=== PATIENT | female | born 1965 | race Caucasian/White ===

== ENCOUNTER 2019-12-13 00:08 | Day surgery (SDC) | payer OTHER, SELFPAY ==
[2019-11-30 09:51] VITALS: BMI 32.8
[2019-12-13] MEDS: LACTATED RINGERS 1,000 ML 30 ML IV CONT (11:15)
--- NOTE | 2019-12-13 11:16 | P.PNAN_ITS ---
Anes - Initial Pre Proc Eval Procedure: Operation Date: 12/13/19 13:00 Proposed Procedures p Excision Subcutaneous Mass Right Lower Back - Naresh Charles MD Date/Time: 12/13/19 11:16 Surgeon: Naresh Charles MD Pre Op Diagnosis: 2.0 subq mass right lower back Patient Data Age: 54 Gender: F Height: 5 ft 7 in Weight: 95.25 kg Allergies Allergy/AdvReac Type Severity Reaction Status Date / Time Penicillins Allergy Mild RASH Verified 11/30/19 09:52 CHILD Home Medications Medication Instructions Recorded Confirmed Type aspirin 81 mg tablet,delayed 81 mg PO DAILY 10/27/19 11/30/19 History release atorvastatin 80 mg tablet 80 mg PO DAILY 10/27/19 11/30/19 History clopidogrel 75 mg tablet 75 mg PO DAILY 10/27/19 11/30/19 History nebivolol 10 mg tablet 10 mg PO DAILY 10/27/19 11/30/19 History ascorbic avos-[id number] 1,000 mg PO 2XW 11/30/19 11/30/19 History [Emergen-C] Patient hx anesthesia problems: none Family hx anesthesia problems: none [facility] Past Medical History Medical History (Updated 12/13/19 @ 11:12 by Kareem Jason MD) History of heart attack HTN (hypertension) Hyperlipidemia Surgical History Surgical History H/O heart artery stent x2 Social History Social History Smoking status: Former smoker Tobacco type: cigarettes Alcohol intake: never Anes - Eval Final PreProcedure Day of Procedure 12/13/19 11:16 Patient weight: overweight Heart: regular rate and rhythm Lungs: clear to auscultation Airway: Mallampati scale class II Neurological: alert and oriented Last oral intake: >/= 8 hours ASA classification: III Emergent: no Anesthetic plan: proceed Anesthesia type and monitoring: general GIVS and standard monitoring Informed Consent: The patient's anesthetic plan and its attendant risks and benefits were discussed with the patient/family/POA. Questions were solicited and answers provided to the satisfaction of the patient/family/POA.
--- NOTE | 2019-12-13 11:21 | PM.HPGS ---
History of Present Illness History of Present Illness Consent: Risks, benefits, and alternatives of removal of a subcutaneous lipoma on the back have been discussed and questions answered. Patient agrees to proceed with procedure. Chief complaint: 2.0 subq mass right lower back Narrative: Bette Franks is a 54 year old female that presented to the office at the request of Dr Viramontes for a mass on the right flank. Patient reports that it is painful, but the pain comes and goes. Patient had an ultrasound of the low back at [facility] on 09/28/19 that showed a nonspecific 1.6 x 1.2 x 1.1 cm echogenic region within the subcutaneous fat statistically most likely to represent either lipoma or a focal region of inflammation. Other neoplasm could not be absolutely excluded. Definitive determination would require CT, MRI, or biopsy. Patient reports that the area was sore the first time she found it. She reports this was about 6-8 months ago. She reports that as time has gone on the area has started to bother her. She reports that the area is sore. She reports it was bothering her everyday but this has lessened recently. She reports that there is no correlation with activity. She does report that the mass is slightly bigger now than it was when she first noticed it. She denies any other masses. Other medical history includes a pervious heart attack. She reports she has had two stints placed. She is currently on Plavix daily. Patient also has hypertension and high cholesterol. Review of Systems Constitutional: Constitutional: Reports no additional constitutional complaints, Reports fatigue and Denies malaise Eyes: Eyes: Denies change in vision and Denies loss of vision ENT: Reports Normal hearing present, Denies change in voice, Denies dizziness, Denies hoarseness and Denies sore throat Cardiovascular: Cardiovascular: Denies chest pain, Denies leg edema and Denies dyspnea Respiratory: Respiratory: Denies cough, Denies dyspnea and Denies wheezing Gastrointestinal: Gastrointestinal: Denies hematochezia, Denies change in bowel habits and Denies heartburn Genitourinary: Genitourinary: Denies urinary frequency and Denies urinary incontinence Neurologic: Reports Normal hearing present, Denies confusion, Denies dizziness, Denies loss of vision, Denies memory loss and Denies seizure-like activity Psychiatric: Psychiatric: Denies confusion, Denies depression and Denies memory loss Endocrine: Endocrine: Denies cold intolerance and Reports fatigue Hematologic/Lymphatic: Hematologic/Lymphatic: Denies easy bleeding and Denies easy bruising Allergic/Immunologic: Allergic/Immunologic: Denies wheezing PMFSH Past Medical History Medical History (Updated 12/13/19 @ 11:25 by Naresh Charles MD) History of heart attack HTN (hypertension) Hyperlipidemia Surgical History Surgical History H/O heart artery stent x2 Social History Social History Smoking status: Former smoker Tobacco type: cigarettes Alcohol intake: never Meds Home Medications and Allergies Home Medications Medication Instructions Recorded Confirmed Type aspirin 81 mg tablet,delayed 81 mg PO DAILY 10/27/19 12/13/19 History release atorvastatin 80 mg tablet 80 mg PO DAILY 10/27/19 12/13/19 History clopidogrel 75 mg tablet 75 mg PO DAILY 10/27/19 12/13/19 History nebivolol 10 mg tablet 10 mg PO DAILY 10/27/19 12/13/19 History ascorbic yohe-izdyvrmb-vss 1,000 mg PO 2XW 11/30/19 12/13/19 History [Emergen-C] Allergies Allergy/AdvReac Type Severity Reaction Status Date / Time Penicillins Allergy Mild RASH Verified 12/13/19 11:24 CHILD Exam Const: General: cooperative, healthy appearing, no acute distress, well developed and alert; No confusion Nutritional Appearance: well nourished Orientation/consciousness: patient oriented x3
[2019-12-13 11:26] VITALS: BP 128/67; PULSE 73; RESP 20; TEMP 37.1; O2SAT 97
[2019-12-13] MEDS: BUPIVACAINE/EPINEPHRINE 0.5% 30 ML VIAL 15 ML INFILTRATE (12:10)
[2019-12-13 12:35] VITALS: BP 106/56; PULSE 75; RESP 16; O2SAT 95
[2019-12-13 13:05] VITALS: BP 106/56; PULSE 76; RESP 20; O2SAT 100
--- NOTE | 2019-12-13 13:07 | PM.PROC ---
Procedure Note - Detailed Date of procedure: 12/13/19 Pre-op diagnosis: 2.0 subq mass right lower back Also a small 6 x 3 mm nevus of the skin right lower back Post-op diagnosis: same Procedure performed: 1. Excision of subcutaneous mass right lower back 2. Excision of skin lesion overlying #1 above Description of procedure: The patient was placed in the left lateral decubitus position. After a surgical time out confirming patient and procedure the patient was prepped and draped in the usual sterile fashion. Local anesthetic was administered subcutaneously. The lesion on the skin measured 6 x 3 mm and the underlying palpable mass sees seemed to be approximately 2 cm in diameter. An elliptical incision was made around the 6 X 2 mm skin lesion taking a thin margin circumferentially. I then extended the incision directly more medially toward the spine. This allowed us to directly dissect into the subcutaneous tissue and excise that approximately 2 cm rounded subcutaneous mass which seemed to be a lipoma. I dissected down to the deep subcutaneous tissues and then completely excised the lesion. Bleeding was controlled with electrocautery. The wound was closed in two layers. An un-dyed 3-0 Vicryl deep dermal and then a 4-0 undyed Monocryl running subcuticular closure was completed. Surgical glue applied as dressing. Patient tolerated this well. Anesthesia: local (0.5% Marcaine with epinephrine) and other (G IV S) Surgeon: Naresh Charles MD Wood Technologist: DAVID Bell, OR 1st assist Estimated blood loss (mL): 2 Drains: No Packing: No Pathology: yes (Small skin ellipse containing a nevus overlying a palpable subcutaneous mass suspected to be a lipoma.) Complications: No immediate complications Condition: stable Disposition: same day
[2019-12-13 13:35] VITALS: BP 116/58; PULSE 73; RESP 20; O2SAT 100
== END 2019-12-13 13:41 | disposition home or self-care (01) ==
PROVIDERS: PCP Internal Medicine; Visit Provider Surgery
PROC: (CPT 21930; principal; 2019-12-13 13:00)
DX: D17.1 Benign lipomatous neoplasm of skin and subcutaneous tissue of trunk (principal); D22.5 Melanocytic nevi of trunk; Z79.82 Long term (current) use of aspirin; Z79.02 Long term (current) use of antithrombotics/antiplatelets; I10 Essential (primary) hypertension; E78.5 Hyperlipidemia, unspecified; I25.2 Old myocardial infarction; Z95.5 Presence of coronary angioplasty implant and graft; Z87.891 Personal history of nicotine dependence
CPT/HCPCS: 21930; 88305; J2001; J2250; J2704; J3010; J7120

== ENCOUNTER 2020-07-12 01:07 | Outpatient (CLI) | payer OTHER, SELFPAY ==
[2020-07-12 20:48] LABS: SARS-CoV-2 RNA PCR Negative
== END 2020-07-12 01:08 | disposition home or self-care (01) ==
LOC: ANHCOVIDDT 01:08
PROVIDERS: PCP Internal Medicine; Visit Provider Internal Medicine Gastroenterology
DX: Z01.812 Encounter for preprocedural laboratory examination (principal); Z11.59 Encounter for screening for other viral diseases
CPT/HCPCS: 87635; C9803; U0003

== ENCOUNTER 2020-07-14 00:30 | Day surgery (SDC) | payer OTHER, SELFPAY ==
[2020-07-05 14:06] VITALS: BMI 30.7
[2020-07-14 06:50] VITALS: BP 122/69; PULSE 72; RESP 18; TEMP 36.7; O2SAT 97; BMI 30.4
[2020-07-14] MEDS: LACTATED RINGERS 1,000 ML 150 ML IV CONT (07:06)
--- NOTE | 2020-07-14 07:12 | PM.HPGS ---
History of Present Illness History of Present Illness Consent: Risks, benefits, and alternatives have been discussed and questions answered. Patient agrees to proceed with procedure. Chief complaint: Neoplasm Screening Narrative: Bette Franks is a 55 year old W female referred for screening colonoscopy. Patient had a colonoscopy 5 years ago which time several hyperplastic polyps removed. She has a family history of colon polyps in father. Patient is presently asymptomatic. Patient is on Plavix secondary coronary artery disease and previous stent placement she stop this 4 days ago. [facility] Past Medical History Medical History History of heart attack HTN (hypertension) Hyperlipidemia Surgical History Surgical History (Updated 07/14/20 @ 07:13 by Juan Vallecillo MD) H/O heart artery stent x2 History of endometrial ablation S/P tonsillectomy and adenoidectomy Social History Social History Smoking status: Former smoker Tobacco type: cigarettes Alcohol intake: never Meds Home Medications and Allergies Home Medications Medication Instructions Recorded Confirmed Type aspirin 81 mg tablet,delayed 81 mg PO DAILY 10/27/19 07/14/20 History release atorvastatin 80 mg tablet 80 mg PO DAILY 10/27/19 07/14/20 History clopidogrel 75 mg tablet 75 mg PO DAILY 10/27/19 07/14/20 History nebivolol 10 mg tablet 10 mg PO DAILY 10/27/19 07/14/20 History Allergies Allergy/AdvReac Type Severity Reaction Status Date / Time hydrocodone Allergy Mild Itching Verified 07/14/20 07:04 Penicillins Allergy Mild RASH Verified 07/14/20 07:04 CHILD Vital Signs Vital Signs - 24 hr 07/14/20 06:50 Temperature 36.7 C Pulse Rate 72 Respiratory Rate 18 Blood Pressure 122/69 Pulse Oximetry 97 Exam Const: Orientation/consciousness: patient oriented x3 Resp: Auscultation: clear to auscultation bilaterally Cardio: Rate: regular rate Rhythm: regular rhythm Heart sounds: no murmurs GI: GI Palp: Yes Soft to palpation, No Tenderness to palpation present (GI), Yes No hepatosplenomegaly present and No Palpable mass present Auscultation: normal bowel sounds Neuro: General: patient oriented x3 and no focal motor deficits Extrem: General: no pedal edema Assessment and Plan Additional Plan screening colonoscopy secondary family history of colon polyps in her father
--- NOTE | 2020-07-14 07:49 | WPDANESEPPF ---
Anes - Initial Pre Proc Eval Procedure: Operation Date: 07/14/20 08:00 Proposed Procedures p Screening Colonoscopy - Juan Vallecillo MD Date/Time: 07/14/20 07:49 Surgeon: Juan Vallecillo MD Pre Op Diagnosis: Neoplasm Screening Patient Data Age: 55 Gender: F Height: 5 ft 7 in Weight: 88.2 kg Last Vital Signs Temp 98.1 F 07/14/20 06:50 Pulse 72 07/14/20 06:50 Resp 18 07/14/20 06:50 BP 122/69 07/14/20 06:50 Pulse Ox 97 07/14/20 06:50 Allergies Allergy/AdvReac Type Severity Reaction Status Date / Time hydrocodone Allergy Mild Itching Verified 07/14/20 07:04 Penicillins Allergy Mild RASH Verified 07/14/20 07:04 CHILD Home Medications Medication Instructions Recorded Confirmed Type aspirin 81 mg tablet,delayed 81 mg PO DAILY 10/27/19 07/14/20 History release atorvastatin 80 mg tablet 80 mg PO DAILY 10/27/19 07/14/20 History clopidogrel 75 mg tablet 75 mg PO DAILY 10/27/19 07/14/20 History nebivolol 10 mg tablet 10 mg PO DAILY 10/27/19 07/14/20 History Patient hx anesthesia problems: none Family hx anesthesia problems: none PMFSH Past Medical History Medical History History of heart attack HTN (hypertension) Hyperlipidemia Surgical History Surgical History (Updated 07/14/20 @ 07:13 by Juan Vallecillo MD) H/O heart artery stent x2 History of endometrial ablation S/P tonsillectomy and adenoidectomy Social History Social History Smoking status: Former smoker Tobacco type: cigarettes Alcohol intake: never Anes - Eval Final PreProcedure Day of Procedure 07/14/20 07:49 Patient weight: obese Heart: regular rate and rhythm Lungs: clear to auscultation Airway: Mallampati scale class II Neurological: alert and oriented Last oral intake: >/= 8 hours ASA classification: III Emergent: no Anesthetic plan: proceed Anesthesia type and monitoring: general GIVS and standard monitoring Informed Consent: The patient's anesthetic plan and its attendant risks and benefits were discussed with the patient/family/POA. Questions were solicited and answers provided to the satisfaction of the patient/family/POA.
[2020-07-14 08:25] VITALS: BP 90/57; PULSE 70; RESP 23; O2SAT 100
[2020-07-14 08:35] VITALS: BP 100/56; PULSE 64; RESP 16; O2SAT 97
[2020-07-14 08:45] VITALS: BP 102/54; PULSE 65; RESP 23; O2SAT 97
== END 2020-07-14 08:50 | disposition home or self-care (01) ==
PROVIDERS: PCP Internal Medicine; Visit Provider Internal Medicine Gastroenterology
PROC: 0DJD8ZZ Inspection of Lower Intestinal Tract, Via Natural or Artificial Opening Endoscopic (ICD-10-PCS; CPT 45378; principal; 2020-07-14 08:00)
DX: Z12.11 Encounter for screening for malignant neoplasm of colon (principal); D12.3 Benign neoplasm of transverse colon; K63.5 Polyp of colon; I10 Essential (primary) hypertension; E78.5 Hyperlipidemia, unspecified; I25.10 Atherosclerotic heart disease of native coronary artery without angina pectoris; I25.2 Old myocardial infarction; Z95.5 Presence of coronary angioplasty implant and graft; Z87.891 Personal history of nicotine dependence; Z79.82 Long term (current) use of aspirin; Z79.02 Long term (current) use of antithrombotics/antiplatelets; Z79.899 Other long term (current) drug therapy; Z88.0 Allergy status to penicillin; Z88.5 Allergy status to narcotic agent
CPT/HCPCS: 45380; 87635; 88305; C9803; J7120; U0003

== ENCOUNTER → 2021-07-05 10:13 | Outpatient (CLI) | payer OTHER, SELFPAY ==
--- NOTE | ~2021-07-05 | MM_ITS ---
EXAMINATION: MM screening [facility] BI w agus HISTORY: Screening mammogram TECHNIQUE: Craniocaudal and mediolateral oblique 3-D tomosynthesis images were obtained and synthetic 2-D images were generated. CAD analysis was submitted and interpreted. COMPARISON: 10/21/2019, 09/14/2018 BREAST PARENCHYMAL COMPOSITION: The breasts are heterogeneously dense, which may obscure small masses . FINDINGS: There is no evidence of suspicious mass, calcification, or architectural distortion to sugg est malignancy in either breast. There has been no suspicious interval change. IMPRESSION: 1. No mammographic evidence of malignancy. 2. Recommend routine screening mammography in one year. BI-RADS Category 1: Negative Reviewed, dictated and finalized at location A.
== END ==
PROVIDERS: Visit Provider Nurse Practitioner
DX: Z12.31 Encounter for screening mammogram for malignant neoplasm of breast (principal)
CPT/HCPCS: 77063; 77067

== ENCOUNTER → 2022-04-24 10:11 | Outpatient (CLI) | payer OTHER, SELFPAY ==
--- NOTE | ~2022-04-24 | DEXA_ITS ---
Bone Density Report Name: MANDIE DAI Age: 56 Sex: Female Ethnicity: White Date of : 1965 Indication: postmenopausal; screening for osteoporosis; height loss; Referring Provider: AKILA LANE Study: Bone densitometry was performed. Exam Date: April 24, 2022 Accession number: [id number] Bone Density: Region BMD T-score Z-score Classification AP Spine (L1-L4) 1.210 1.5 2.6 Normal Femoral Neck (Left) 1.113 2.4 3.5 Normal Total Hip (Left) 1.249 2.5 3.2 Normal Femoral Neck (Right) 1.128 2.5 3.6 Normal Total Hip (Right) 1.227 2.3 3.1 Normal Total Hip Mean 1.238 2.4 3.2 Normal World Health Organization criteria for BMD impression classify patients as: Normal (T-score at or above -1.0), Osteopenia (T-score between -1.0 and -2.5), or Osteoporosis (T-score at or below -2.5). 10-year Fracture Risk: FRAX not reported because: All T-scores for Spine Total, Hip Total, Femoral Neck at or above -1.0 Previous Exams: Region Exam Age BMD T-score BMD Change BMD Change Date g/cm2 vs Baseline vs Previous AP Spine(L1-L4) 04/24/2022 56 1.210 1.5 0.024 -0.007 09/28/2019 54 1.217 1.5 0.031 0.031 09/12/2016 51 1.186 1.3 Total Hip(Left) 04/24/2022 56 1.249 2.5 0.061 0.022 09/28/2019 54 1.226 2.3 0.038 0.038 09/12/2016 51 1.188 2.0 Total Hip(Right) 04/24/2022 56 1.227 2.3 0.031 -0.009 09/28/2019 54 1.236 2.4 0.040 0.040 09/12/2016 51 1.196 2.1 *Denotes significance at 95% confidence level, LSC for AP Spine = 0.022 g/cm2, LSC for Total Hip = 0.027 g/cm2 Clinical Information Provided by Patient: Smokes Has used the following medications: Vitamin D Patient maximum height was 67.0 Menopause Age: 44 Drinks caffeinated beverages Onset of menses at age 16 Number of children 2 Impression: The patient has normal bone mass. The patient has risk factors, including: smoking. No significant bone loss was observed. Discussion: LOW RISK OF FRACTURE; BONE DENSITY IS WELL ABOVE THE MINIMUM DESIRABLE LEVEL AND ABOVE AVERAGE FOR AGE AND SEX AT ALL SKELETAL SITES TESTED. This person's bone density is above expected limits for age and sex. This is rarely clinically significant, but should be pursued if there are significant musculoskeletal complaints. The patient should follow a healthful lifestyle (g
== END ==
PROVIDERS: PCP Internal Medicine; Visit Provider Obstetrics & Gynecology Gynecology
DX: Z78.0 Asymptomatic menopausal state (principal); Z13.820 Encounter for screening for osteoporosis
CPT/HCPCS: 77080

== ENCOUNTER → 2022-07-08 07:05 | Outpatient (CLI) | payer OTHER, SELFPAY ==
--- NOTE | ~2022-07-08 | MM_ITS ---
EXAMINATION: MM screening [facility] BI w agus HISTORY: Screening mammogram TECHNIQUE: Craniocaudal and mediolateral oblique 3-D tomosynthesis images were obtained and synthetic 2-D images were generated. CAD analysis was submitted and interpreted. COMPARISON: 07/05/2021, 10/21/2019, 09/14/2018 BREAST PARENCHYMAL COMPOSITION: The breasts are heterogeneously dense, which may obscure small masses . FINDINGS: RIGHT BREAST: There is a mass in the anterior third of the inner breast. LEFT BREAST: There is no suspicious mass, calcification, or architectural distortion to suggest malig radha. There has been no significant interval change. IMPRESSION: 1. Right breast mass. 2. Additional mammographic views and possible breast ultrasound are recommended. BI-RADS Category 0: Incomplete: Needs additional imaging evaluation. Reviewed, dictated and finalized at location A. IMPRESSION: 1. Right breast mass. 2. Additional mammographic views and possible breast ultrasound are recommended . BI-RADS Category 0: Incomplete: Needs additional imaging evaluation.
== END ==
PROVIDERS: PCP Internal Medicine; Visit Provider Nurse Practitioner
DX: Z12.31 Encounter for screening mammogram for malignant neoplasm of breast (principal); R92.8 Other abnormal and inconclusive findings on diagnostic imaging of breast
CPT/HCPCS: 77063; 77067

== ENCOUNTER → 2022-07-24 08:09 | Outpatient (CLI) | payer OTHER, SELFPAY ==
--- NOTE | ~2022-07-24 | MMUS_ITS ---
EXAMINATION: MM diagnostic alanna RT w agus, US breast RT complete HISTORY: Mass reported in anterior third of inner right breast on 07/08/2022 screening mammogram exami [place] TECHNIQUE: Additional full field ML and spot ML, MLO and CC 3-D tomosynthesis images of the right neto ast were performed and synthetic 2-D images were generated. CAD analysis was submitted and interprete d. High resolution complete right breast ultrasound examination including all 4 quadrants and subareo lar area was performed. COMPARISON: 07/08/2022 bilateral screening mammogram FINDINGS: MAMMOGRAPHIC FINDINGS: Circumscribed 8 mm mass is noted in the anterior inner mid right breast. There is appears benign, lik princess a cyst. Occasional smaller similar circumscribed nodular densities are scattered in the right breast. No suspicious mass, architectural distortion, malignant calcification, skin thickening or retraction is noted. ULTRASOUND: 12:00 6 cm from nipple: Rounded approximately 3.5 mm hypoechoic lesion without internal vascularity o r posterior shadowing; six-month targeted right 12:00 breast ultrasound follow-up is recommended 1:00 subareolar area: 5.5 x 8.5 x 9.2 mm simple cyst with through transmission posterior enhancement 2:00 6 cm from nipple: 2.6 x 4.6 x 5.3 mm simple cyst 3:00 4 cm from nipple: 5.2 x 3.7 x 4.8 mm septated cyst 8:00 7 cm from nipple: 5.3 x 3.6 x 5.9 mm cyst IMPRESSION: 1. Probable benign sonographic finding at 12:00 6 cm from nipple 2. Six-month targeted 12:00 right breast ultrasound follow-up is recommended BI-RADS category 3, probably benign findings. Reviewed, dictated and finalized at location A. IMPRESSION: 1. Probable benign sonographic finding at 12:00 6 cm from nipple 2. Six-month targeted 12:00 right breast ultrasound follow-up is recommended BI-RADS category 3, probably benign findings.
== END ==
PROVIDERS: PCP Internal Medicine; Visit Provider Obstetrics & Gynecology Gynecology
DX: R92.8 Other abnormal and inconclusive findings on diagnostic imaging of breast (principal)
CPT/HCPCS: 76641; 77061; 77065; G0279

== ENCOUNTER → 2023-01-20 07:45 | Outpatient (CLI) | payer OTHER, SELFPAY ==
--- NOTE | ~2023-01-20 | US_ITS ---
US breast RT limited DATE: 01/20/2023 08:17 INDICATION: Six-month follow-up of probably benign 12:00 lesion 6 cm from nipple TECHNIQUE: Real-time and color flow imaging targeted to 12:00 6 cm from nipple COMPARISON: 07/24/2022 right complete breast ultrasound examination FINDINGS: There is a circumscribed sonolucent lesion with through transmission posterior enhancement at 12:00 6 cm from nipple measuring approximately 2.6 x 3.5 x 3.9 mm, consistent with small benign cy st. IMPRESSION: BI-RADS Category 2: Benign Recommendation: Routine mammographic screening Reviewed, dictated and finalized at Location A. Reviewed, dictated and finalized at location A.
== END ==
PROVIDERS: PCP Internal Medicine; Visit Provider Obstetrics & Gynecology Gynecology
DX: R92.8 Other abnormal and inconclusive findings on diagnostic imaging of breast (principal)
CPT/HCPCS: 76642

== ENCOUNTER → 2023-02-20 08:08 | Outpatient (CLI) | payer OTHER, SELFPAY ==
--- NOTE | ~2023-02-20 | CT_ITS ---
EXAMINATION: CT abdomen pelvis wo con DATE: 02/20/2023 08:28 INDICATION: History of renal stones TECHNIQUE: Computed tomography (CT) of the abdomen and pelvis was performed without intravenous contr ast. The dose-length product was 743.46 mGy-cm. Automated exposure control and iterative reconstructi on technique were employed. COMPARISON: None. FINDINGS: Lung bases are unremarkable. Heart size normal. No significant pleural or pericardial effus ion. Small hiatal hernia. Mild atherosclerosis of the aorta. There is a stent in the left common bear c vein. The liver, spleen, pancreas, adrenal glands and left kidney are unremarkable. There is a 2 mm nonobst ructing right renal stone. Gallbladder is present. Nonobstructive bowel pattern. No free air or free fluid. No ureteral stones or hydronephrosis. No abnormal pelvic masses or fluid collections. Mild lum bar spondylosis. IMPRESSION: 1. Nonobstructing 2 mm right renal stone. Reviewed, dictated and finalized at location L.
== END ==
PROVIDERS: PCP Internal Medicine; Visit Provider Urology
DX: N20.0 Calculus of kidney (principal)
CPT/HCPCS: 74176

== ENCOUNTER 2024-04-28 15:34 | Outpatient (CLI) | payer OTHER, SELFPAY ==
--- NOTE | ~2024-04-28 | XR_ITS ---
XR abdomen/kub 1V Ordering provider: Twin Saunders MD History: . Calcium Kidney Stone . Comparison: None. FINDINGS: BOWEL: Nonobstructive bowel gas pattern. ORGANOMEGALY: None. SIGNIFICANT PATHOLOGIC CALCIFICATIONS: None. OTHER: Stent in the left iliac artery. No free air is seen under the diaphragm. IMPRESSION: NO ACUTE ABDOMINAL FINDINGS. Reviewed, dictated and finalized at location A.
== END 2024-04-28 15:35 | disposition home or self-care (01) ==
PROVIDERS: PCP Internal Medicine; Visit Provider Urology
DX: N20.0 Calculus of kidney (principal)
CPT/HCPCS: 74018

== ENCOUNTER 2025-04-21 15:23 | Outpatient (CLI) | payer OTHER, SELFPAY ==
--- NOTE | ~2025-04-21 | XR_ITS ---
XR abdomen/kub 1V 04/21/2025 16:21 INDICATION: Renal stone TECHNIQUE: KUB COMPARISON: 04/28/2024 FINDINGS: Bowel gas pattern is normal. There is no evidence of free air, mass, organomegaly, ascites or obstruction. No abnormal calculi are seen. The bones appear intact. There is a left iliac arter y stent. IMPRESSION: 1: No acute abdominal abnormality identified. Reviewed, dictated and finalized at location B.
--- OUTSIDE RECORDS SUMMARY | 2025-04-21 16:07 | XMS_ITS | Encounter Summary ---
Author Organization [facility] Healthcare Address [address] [place] [id number] Care Team Providers Care Artist Suspect Name Role Phone Ciro Pandya MD Primary Care Provider [phone] Encounter Details Date Type Department Care Team (Late st Contact Info) Description 04/13/2025 Results Follow-Up [facility] at [address] [place] [address] Indy Roberts, [address] [place] [address] XR Forearm Right 2 Vw Social History Tobacco Use Types Packs/Day Years Used Date Smoking Tobacco: Every Day Cigarettes Smokeless Tobacco: Current AUDIT-C Answer Date Recorded Q1: How often do you have a drink containing alc ohol? Monthly or less 11/11/2024 Q2: How many drinks containi ng alcohol do you have on a typical day when you are drinking? 1 or 2 11/11/2024 Q3: How often do you have si x or more drinks on one occasion? Less than monthly 11/11/2024 Personal Safety Answer Date Recorded Have you ever been in or are you currently in a harmful physical or emotional relationship or is someone making you feel afraid or unsafe? Denies 11/11/2024 Comments No Sex and Gender Information Value Date Recorded Sex Assigned at Not on file Legal Sex Female 3:28 PM [employer] Gender Identity Not on file Sexual Orientation Not on file documented as of this encounter Miscellaneous Notes * Result Encounter Note - Claudia Loza, EPI - 04/14/2025 8:51 AM CDT Spoke with patient * Result Encounter Note - Claudia Loza MA - 04/13/2025 6:53 PM CDT Left VM for patient * Result Encounter Note - Indy Roberts PA - 04/13/2025 4:19 PM CDT Please alert patient that her x-ray showed no fractures or other abnormalities. documented in this encounter Plan of Treatment Not on file documented as of this encounter Visit Diagnoses Not on filedocumented in this encounter Care Teams Artist Suspect Relationship Specialty Start Date End Date Ciro Pandya MD PCP - General Internal Medicine 07/15/19 documented as of this encounter
--- OUTSIDE RECORDS SUMMARY | 2025-04-21 16:07 | XMS_ITS | Clinical Summary ---
Author Organization [facility] Building B Address [address] [place] [address] Care Team Providers Care Revenue Accounting Manager Name Role Phone Ciro Pandya MD Primary Care Provider [phone] Allergies Active Allergy Reactions Criticality Noted Date Comments Fenofibrate Other (See comments) Low 07/15/2019 Metformin Stomach upset Low 06/03/2024 Penicillins Rash,Unknown Medium 07/15/2019 Igjeuss-Pdr-Dbg Reductase Inhibitors Unknown 07/15/2019 Valacyclovir Swelling,Unknown Medium 10/09/2017 Medications atorvastatin (LIPITOR) 40 mg tablet Take 1 tablet (40 mg total) by mouth daily 2 06/21/2019 Active clopidogrel (PLAVIX) 75 mg tablet Take 1 tablet (75 mg total) by mouth daily 2 05/27/2019 Active aspirin 81 mg enteric coated tablet Take 1 tablet (81 mg total) by mouth daily Active famotidine (PEPCID) 20 mg tabletIndication s:Heartburn Take 1 tablet (20 mg total) by mouth daily Active bisoprolol (ZEBETA) 5 mg tablet Take 1 tablet (5 mg total) by mouth daily 11/13/2024 Active ezetimibe (ZETIA) 10 mg tablet Take 1 tablet (10 mg total) by mouth daily 30 tablet 1 11/13/2024 Active Active Problems Problem Noted Date Diagnosed Date Cerebrovascular accident (CVA), unspecified [facility] anism 11/11/2024 CAD (coronary artery disease) 06/02/2024 Encounters Date Type Department Care Team Description 04/13/2025 10:00 AM CDT - 04/13/2025 11:59 PM CDT Hospital Encounter [facility] - Outpatient Center at [address] [address] Right forearm pain Discharge Disposition: Discharge to home or self care 04/13/2025 9:45 AM CDT Office Visit [facility] at [address] [place] [id number] Indy Roberts PA Right forearm pain (Primary Dx) 04/13/2025 Results Follow-Up [facility] at [address] [place] [phone] Indy Roberts PA XR Forearm Right 2 Vw from Last 3 Months Surgical History Surgery Date Site/Laterality Comments CARDIAC CATHETERIZATION Medical History Medical History Date Comments Myocardial infarction (HCC) Smoking CAD (coronary artery disease) Hypertension Family History Medical History Relation Name Comments No Known Problems Brother No Known Problems Daughter No Known Problems Father No Known Problems Mother Arthritis Other Cancer Other Heart disease Other Hypertension Other No Known Problems Sister No Known Problems Son Relation Name Status Comments Brother Daughter Father Mother Other Sister Son Social History Tobacco Use Types Packs/Day Years Used Date Smoking Tobacco: Every Day Cigarettes Smokeless Tobacco: Current Tobacco Cessation:Ready to Q uit: Not Asked; Counseling Given: Not Answered AUDIT-C Answer Date Recorded Q1: How often [...] on file Legal Sex Female 3:28 PM GENERAL OFFICE ASSOCIATE Gender Identity Not on file Sexual Orientation Not on file Obstetrics History Para Term AB IAB SAB Ectopic Multiple Livin g Live Births 2 2 2 Date Outcome GA Total Labor Labor/2nd/3rd Weight Sex Type Anes PTL Carrie A1 A5 Name Clin Term Term Last Filed Vital Signs Vital Sign Reading Time Taken Comments Blood Pressure 124/72 04/13/2025 9:46 AM CDT Pulse 74 04/13/2025 9:46 AM CDT Temperature 36.8 C (98.2 F) 04/13/2025 9:46 AM CDT Respiratory Rate 18 04/13/2025 9:46 AM CDT Oxygen Saturation 98% 04/13/2025 9:46 AM CDT Inhaled Oxygen Concentration - - Weight 87.1 kg (192 lb) 04/13/2025 9:46 AM CDT Height 170.2 cm (5' 7) 04/13/2025 9:46 AM CDT Body Mass Index 30.07 04/13/2025 9:46 AM CDT Plan of Treatment Health Maintenance Due Date Last Done Comments Cervical Cancer Screening 1965 Colon Cancer Screening-Colonoscopy 1965 Depression Screening 1965 Hepatitis C Screening 1965 Regular Well Visit/Exam 18-64 1984 Pneumococcal vaccine <65 (3 of 3 - PCV20 or PCV21) 08/13/2020 08/13/2015, 08/12/2015, 07/19/2009 Influenza Vaccine (Season Ended) 2025 08/09/2019, 07/23/2018, 08/07/2017, Additional history exists Breast Cancer Screening-Mammogram 11/06/2025 11/06/2024, 10/10/2023, 10/10/2023 DTaP/Tdap/Td Vaccine (3 - Td or Tdap) 11/13/2025 11/13/2015, 10/29/2005 Hepatitis B Screening Completed 04/23/2006 , 02/12/2006, 12/20/2005 Zoster Vaccine Completed 05/06/2018, 02/13/2018 Medical Devices Implanted Type Area Bail Bondsman Device Identifier Shelf Expiration Date Model / Serial / Lot [employer] Angio-Seal Vip 6fr Closere Device [id number] - [id number] Implanted:Qty: 1 on 06/08/2024 by Fabrizio Landa MD at [facility] [employer] 01/29/2025 [id number] / / Procedures Procedure Name Priority Date/Time Associated Diagnosis Comments XR RADIUS ULNA RIGHT 2 VIEWS Schedule NURA, Read NURA (Appt Today, Awaiting Results) 04/13/2025 10:10 AM CDT Right forearm pain SCREENING MAMMOGRAM BILATERAL W LUCAS Schedule Routine, Read Routine (OP Routine) 11/06/2024 7:58 AM GENERAL OFFICE ASSOCIATE Screening mammogram, encounter for from Last 3 Months or Most Recently Relevant to Health Maintenance Results * XR Forearm Right 2 Vw (04/13/2025 10:10 AM CDT) Anatomical Region Laterality Modality Upper Extremities, Forearm Right Compu torey Radiography 04/13/2025 4:11 PM CDT Narrative 04/13/2025 4:11 PM CDT EXAM DESCRIPTION: XR RADIUS ULNA RIGHT 2 VIEWS REASON FOR STUDY: pain, swelling, and bruising to mid forearm after falling and hitting it yesterday Right posterior mid forearm pain and swelling after a fall yesterday No surgeries or prior injuries TECHNIQUE: 2 radiographic view(s) of the right radius and ulna . COMPARISON: None FINDINGS: BONES/JOINTS: There is no acute fracture, malalignment or osseous abnormality. The joint spaces are normal. SOFT TISSUES: Within normal limits. IMPRESSION: No acute osseous abnormality. THIS IS AN ELECTRONICALLY VERIFIED FINAL REPORT 04/13/2025 4:11 PM - Electronically signed by Kristin Pugh M.D. FT: FT Report ID: [id number] Reading Location: [id number] Procedure Note Kristin Sanchez MD - 04/13/2025 EXAM DESCRIPTION: XR RADIUS ULNA RIGHT 2 VIEWS REASON FOR STUDY: pain, swelling, and bruising to mid forearm afterfalling and hitting it yesterday Right posterior mid forearm pain and swelling after a fall yesterday No surgeries or prior injuries TECHNIQUE: 2 radiographic view(s) of the right radius and ulna . COMPARISON: None FINDINGS: BONES/JOINTS: There is no acute fracture, malalignment or osseousabnormality. The joint spaces are normal. SOFT TISSUES: Within normal limits. IMPRESSION: No acute osseous abnormality. THIS IS AN ELECTRONICALLY VERIFIED FINAL REPORT 04/13/2025 4:11 PM - Electronically signed by Kristin Pugh M.D. FT: FT Report ID: [id number] Reading Location: [id number] Indy BARRERA IMG XR PROCEDURES F inal Result * Screening Mammogram Bilateral W Lucas (11/06/2024 7:58 AM GENERAL OFFICE ASSOCIATE) Anatomical Region Laterality Modality Breast Bilateral Mammography 11/06/2024 8:12 PM GENERAL OFFICE ASSOCIATE Impressions 11/06/2024 8:12 PM GENERAL OFFICE ASSOCIATE There is no mammographic evidence of malignancy. A 1 year screening mammogram is recommended. BI-RADS: 2 - Benign. The patient has been or will be contacted. The patient will be entered into a reminder system with a target due date of 1 year for her next mammogram. Electronically signed by: Anastasia Matute M.D. Narrative 11/06/2024 8:12 PM GENERAL OFFICE ASSOCIATE EXAMINATION: SCREENING MAMMOGRAM BILATERAL W LUCAS ORDERING HEALTHCARE PROVIDER: SELF SCREENING MAMMOGRAM HISTORY: Routine screening mammography. COMPARISON: 10/10/2023,01/20/2023, 07/24/2022, 07/08/2022, 07/05/2021, 10/21/2019, and 09/14/2018 TECHNIQUE: CC and MLO views of the bilateral breasts were obtained with digital technique using breast tomosynthesis with C view. Computer aided detection was utilized. FINDINGS: DENSITY: There are scattered areas of fibroglandular density. BREASTS: There are postbiopsy clips in the left breast. There are benign calcifications bilaterally. There are stable masses in the right breast, most consistent with cysts. There are no suspicious masses, suspicious calcifications, or other suspicious findings in either breast. There has been no suspicious interval change. Self Screening Mammogram IMG MAMMO PROCEDURES Fi nal Result from Last 3 Months or Most Recently Relevant to Health Maintenance Insurance [facility] CHOICE PLUS CHOICE PLUS [facility] [employer]IONS Advance Directives For more information, please contact: [phone] * Full Code (Latest Code Status on File) Date Activated Date Inactivated Comments 11/11/2024 10:14 AM 11/12/2024 4:57 PM * Full Code Date Activated Date Inactivated Comments 06/08/2024 11:38 AM 06/08/2024 7:49 PM Care Teams Revenue Accounting Manager Relationship Specialty Start Date End Date Ciro Pandya MD PCP - General Internal Medicine 07/15/19
--- OUTSIDE RECORDS SUMMARY | 2025-04-21 16:07 | XMS_ITS | Referral Summary ---
Author Organization [facility] Office Building B Address [address] [place] [address] Care Team Providers Care Tie Knitter Helper Name Role Phone Ciro Pandya MD Primary Care Provider [phone] Encounters Date Type Department Care Team Description 04/13/2025 Results Follow-Up [facility] at [address] [address] Indy Roberts PA XR Forearm Right 2 Vw 04/13/2025 10:00 AM CDT - 04/13/2025 11:59 PM CDT Hospital Encounter [facility] Radiology - Outpatient Center at [address] [address] Right forearm pain Discharge Disposition: Discharge to home or self care 04/13/2025 9:45 AM CDT Office Visit [facility] at [address] [address] Indy Roberts PA Right forearm pain (Primary Dx) from Last 3 Months Allergies Active Allergy Reactions Criticality Noted Date Comments Fenofibrate Other (See comments) Low 07/15/2019 Metformin Stomach upset Low 06/03/2024 Penicillins Rash,Unknown Medium 07/15/2019 Hesyfkh-Gin-Msh Reductase Inhibitors Unknown 07/15/2019 Valacyclovir Swelling,Unknown Medium [...] Date Diagnosed Date Cerebrovascular accident (CVA), unspecified [facility] anis 11/11/2024 CAD (coronary artery disease) 06/02/2024 Social History Tobacco Use Types Packs/Day Years [...] on file 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 Gender Identity Not on file Sexual Orientation Not on file Last Filed Vital Signs Vital Sign Reading [...] 04/13/2025 9:46 AM CDT Plan of Treatment Not on file Medical Devices Implanted Type Area Director Of Property Management Device Identifier Shelf Expiration Date Model / Serial / Lot [employer] Angio-Seal Vip 6fr Closere Device [id number] - [id number] Implanted:Qty: 1 on 06/08/2024 by Fabrizio Landa MD at [facility] [employer] 01/29/2025 [id number] / / Procedures Procedure Name Priority Date/Time Associated Diagnosis Comments XR RADIUS ULNA RIGHT 2 VIEWS Schedule NURA, Read NURA (Appt Today, Awaiting Results) 04/13/2025 10:10 AM CDT Right forearm pain SCREENING MAMMOGRAM BILATERAL W LUCAS Schedule Routine, Read Routine (OP Routine) 11/06/2024 7:58 AM GLOBAL SALES MANAGER Screening mammogram, encounter for from Last 3 [...] Kristin Pugh M.D. FT: FT Report ID: [id number] Reading Location: [id number] Procedure Note Kristin Sanchez MD - 04/13/2025 [...] Kristin Pugh M.D. FT: FT Report ID: [id number] Reading Location: [id number] us Indy BARRERA IMG XR PROCEDURES F inal Result * Screening Mammogram Bilateral W Lucas (11/06/2024 7:58 AM GLOBAL SALES MANAGER) Anatomical Region Laterality Modality Breast Bilateral Mammography 11/06/2024 8:12 PM GLOBAL SALES MANAGER Impressions 11/06/2024 8:12 PM GLOBAL SALES MANAGER There is no mammographic evidence of malignancy. A 1 year screening mammogram is recommended. BI-RADS: 2 - Benign. The patient has been or will be contacted. The patient will be entered into a reminder system with a target due date of 1 year for her next mammogram. Electronically signed by: Anastasia Matute M.D. Narrative 11/06/2024 8:12 PM GLOBAL SALES MANAGER EXAMINATION: SCREENING MAMMOGRAM BILATERAL W LUCAS ORDERING [...] There has been no suspicious interval change. us Self Screening Mammogram IMG MAMMO PROCEDURES Fi nal Result from Last 3 Months or Most Recently Relevant to Health Maintenance Insurance CHOICE PLUS [facility] CHOICE PLUS [facility] [employer] Advance Directives For more information, please contact: [phone] * Full Code (Latest Code Status on File) Date Activated Date Inactivated Comments 11/11/2024 10:14 AM 11/12/2024 4:57 PM * Full Code Date Activated Date Inactivated Comments 06/08/2024 11:38 AM 06/08/2024 7:49 PM Care Teams Tie Knitter Helper Relationship Specialty Start Date End Date Ciro Pandya MD PCP - General Internal Medicine 07/15/19
--- OUTSIDE RECORDS SUMMARY | 2025-04-21 16:07 | XMS_ITS | Clinical Summary ---
Author Organization [facility] Address [address] [place] [address] Phone Care Team Providers Care Assembler Handbags Name Role Phone Ciro Pandya MD Primary Care Provider [phone] Allergies Active Allergy Reactions Criticality Noted Date Comments Fenofibrate Other (see Comments) Low 07/15/2019 Penicillins Rash Medium 07/15/2019 Valacyclovir Other (see Comments),Swelling Medium 09/12 Medications clopidogrel (PLAVIX) 75 MG Tablet Take 75 mg by mouth daily. 09/07/2023 Active atorvastatin (LIPITOR) 40 MG Tablet Take 40 mg by mouth daily. 09/07/2023 Active metFORMIN (GLUCOPHAGE-XR) 500 MG TABLET SR 24 HR 10/13/2023 Active nebivolol (Bystolic) 5 MG Tablet Take 1 tablet every day by oral route. Active lisinopril (PRINIVIL, ZESTRIL) 10 MG Tablet Take 1 tablet every day by oral route. Active aspirin EC 81 MG Tablet Delayed Response Take 81 mg by mouth daily. Active Social History Tobacco Use Types Packs/Day Years Used Date Smoking Tobacco: Some Days Cigarettes Smokeless Tobacco: Never Comments No Sex and Gender Information Value Date Recorded Sex Assigned at Not on file Legal Sex Female 2:56 PM POWDER MONKEY Gender Identity Not on file Sexual Orientation Not on file Last Filed Vital Signs Vital Sign Reading Time Taken Comments Blood Pressure 126/60 10/18/2023 3:33 PM POWDER MONKEY Pulse 81 10/18/2023 3:33 PM POWDER MONKEY Temperature 36.7 C (98.1 F) 10/18/2023 3:33 PM POWDER MONKEY Respiratory Rate 16 10/18/2023 3:33 PM POWDER MONKEY Oxygen Saturation 98% 10/18/2023 3:33 PM POWDER MONKEY Inhaled Oxygen Concentration - - Weight - - Height - - Body Mass Index - - Plan of Treatment Health Maintenance Due Date Last Done Comments Hepatitis C Virus (HCV) Screening 1966 HPV/Cotest 1996 Colonoscopy 2011 Colorectal Cancer Screening 2011 Cologuard 2016 Immunochemical Fecal Occult Blood 2016 Cervical Cancer Screening (CCS) 09/15/2020 Pap Smear 09/15/2020 09/15/2017 SARS-COV-2 Immunization ( season) 2024 09/07/2023, 07/17/2022, 02/11/2022, Additional history exists Mammogram 10/10/2024 10/10/2023 Influenza Immunization (Season Ended) 2025 07/31/2023, 08/15/2022, 08/23/2021, Additional history exists Respiratory Syncytial Virus (RSV) Immunization (Adult) (1 - 1-dose 75+ series) 2041 Hepatitis B Immunization Completed 006, 02/12/2006, 12/20/2005 Zoster Immunization Completed 05/06/2018, 8 Pneumococcal Immunization (50+ years) Completed 04/17/2022, 08/12/2015 Pneumococcal Immunization Combined Discontinued 04/17/2022, 08/12/2015 DTaP/Tdap/Td Immunization Discontinued 2022, 11/13/2015, 10/29/2005 TdaP Immunization Completed 03/24/2023, 10/29/2005 Human Papillomavirus (HPV) Immunization Aged Out No longer eligible based on patient's age to complete this topic Meningococcal Immunization (ACWY) Aged Out No longer eligible based on patient's age to complete this topic Rotavirus Immunization Aged Out No lo nger eligible based on patient's age to complete this topic Insurance [employer] Care Teams Assembler Handbags Relationship Specialty Start Date End Date Ciro Pandya MD PCP - General Internal Medicine 10/18/23
== END 2025-04-21 15:24 | disposition home or self-care (01) ==
PROVIDERS: PCP Internal Medicine; Visit Provider Urology
DX: N20.0 Calculus of kidney (principal)
CPT/HCPCS: 74018

== ENCOUNTER 2025-08-19 01:34 | Day surgery (SDC) | payer OTHER, SELFPAY ==
[2025-08-11 14:22] VITALS: BMI 30.3
[2025-08-19 06:51] VITALS: BP 129/70; PULSE 81; RESP 18; TEMP 36.4; O2SAT 98
[2025-08-19] MEDS: LACTATED RINGERS 1,000 ML 150 ML IV CONT (07:04)
[2025-08-19] MEDS: SIMETHICONE ORAL SUSPENSION 20 MG/0.3 ML 30 ML BOTTLE 1.8 ML PO (07:10)
--- NOTE | 2025-08-19 07:14 | WPDANESEPPF ---
Anes - Initial Pre Proc Eval Procedure: Operation Date: 08/19/25 08:00 Proposed Procedures p EGD & Screening Colonoscopy - Lucas Mccurdy MD Date/Time: 08/19/25 07:14 Surgeon: Lucas Mccurdy MD Pre Op Diagnosis: GERD/screening/hx of colon polyps Patient Data Age: 60 Gender: F Height: 1.68 m Weight: 85 kg Last Vital Signs Temp 36.4 C 08/19/25 06:51 Pulse 81 08/19/25 06:51 Resp 18 08/19/25 06:51 BP 129/70 08/19/25 06:51 Pulse Ox 98 08/19/25 06:51 O2 Del Method Room Air 08/19/25 06:51 Allergies Allergy/AdvReac Type Severity Reaction Status Date / Time hydrocodone Allergy Mild Itching Verified 08/19/25 06:48 Penicillins Allergy Mild RASH Verified 08/19/25 06:48 CHILD Home Medications ?Medication ?Instructions ?Recorded ?Confirmed ?Type aspirin 81 mg tablet,delayed 81 mg PO DAILY 10/27/19 08/19/25 History release (Adult Aspirin Regimen) atorvastatin 80 mg tablet (Lipitor) 80 mg PO DAILY 10/27/19 08/19/25 History clopidogrel 75 mg tablet (Plavix) 75 mg PO DAILY 10/27/19 08/19/25 History nebivolol 10 mg tablet (Bystolic) 10 mg PO DAILY 10/27/19 08/11/25 History atorvastatin 40 mg tablet 40 mg PO QPM 08/11/25 08/19/25 History bisoprolol fumarate 5 mg tablet 5 mg PO DAILY 08/11/25 08/19/25 History cetirizine 10 mg tablet 10 mg PO DAILY PRN allergy symptoms 08/11/25 08/11/25 History ezetimibe 10 mg tablet 10 mg PO DAILY 08/11/25 08/19/25 History famotidine 20 mg tablet 20 mg PO DAILY 08/11/25 08/19/25 History semaglutide 1 mg/dose (4 mg/3 mL) 1 mg subcut WEEKLY 08/11/25 08/19/25 History subcutaneous pen injector (Ozempic) Laboratory Tests 08/19/25 06:58 POC Capillary Glucose 124 H mg/dl (65-105) Patient hx anesthesia problems: none Family hx anesthesia problems: none Results Review: All pre-operative results and documents have been reviewed as part of the pre-operative evaluation. [facility] Past Medical History Medical History PVD (peripheral vascular disease) stent left leg Hyperlipidemia HTN (hypertension) History of heart attack Surgical History Surgical History History of endometrial ablation S/P tonsillectomy and adenoidectomy H/O heart artery stent x2 Family History Family History Sibling Family history of malignant melanoma Father Heart disease Sibling Heart disease Diabetes mellitus Social History Social History Years smoked: 30 Smoking status: Current every day smoker Tobacco type: cigarettes Alcohol intake: never Substance use: never Living arrangements: with family Occupation/Education: occupation Spiritual care concerns: No Anes - Eval Final PreProcedure Day of Procedure 08/19/25 07:14 Patient weight: overweight Heart: regular rate and rhythm Lungs: decreased breath sounds Airway: Mallampati scale class II Neurological: alert and oriented Last oral intake: >/= 8 hours ASA classification: III Emergent: no Anesthetic plan: proceed Anesthesia type and monitoring: general GIVS and standard monitoring Results Review: All pre-operative results and documents have been reviewed as part of the pre-operative evaluation. Informed Consent: The patient's anesthetic plan and its attendant risks and benefits were discussed with the patient/family/POA. Questions were solicited and answers provided to the satisfaction of the patient/family/POA.
--- NOTE | 2025-08-19 07:43 | PM.IMHP ---
H&P: HPI History of Present Illness Date/Time: 08/19/25 07:43 Chief Complaint: GERD-history of colon polyps Narrative: the patient has longstanding heartburn, almost daily episodes partially controlled with famotidine. She has never been on sustained therapy with any PPI. There is no dysphagia or unintentional weight loss. She never had EGD. In addition, approximately 5 years ago the patient was found to have a colonic polyp. Therefore, she is here today for EGD and colonoscopy. Review of Systems Review of Systems: All systems reviewed & are unremarkable except as noted in HPI and below PMFSH Past Medical History Medical History PVD (peripheral vascular disease) stent left leg Hyperlipidemia HTN (hypertension) History of heart attack Surgical History Surgical History History of endometrial ablation S/P tonsillectomy and adenoidectomy H/O heart artery stent x2 Family History Family History Sibling Family history of malignant melanoma Father Heart disease Sibling Heart disease Diabetes mellitus Social History Social History Years smoked: 30 Smoking status: Current every day smoker Tobacco type: cigarettes Alcohol intake: never Substance use: never Living arrangements: with family Occupation/Education: occupation Spiritual care concerns: No Meds Home Medications and Allergies Home Medications ?Medication ?Instructions ?Recorded ?Confirmed ?Type aspirin 81 mg tablet,delayed 81 mg PO DAILY 10/27/19 08/19/25 History release (Adult Aspirin Regimen) atorvastatin 80 mg tablet (Lipitor) 80 mg PO DAILY 10/27/19 08/19/25 History clopidogrel 75 mg tablet (Plavix) 75 mg PO DAILY 10/27/19 08/19/25 History nebivolol 10 mg tablet (Bystolic) 10 mg PO DAILY 10/27/19 08/11/25 History atorvastatin 40 mg tablet 40 mg PO QPM 08/11/25 08/19/25 History bisoprolol fumarate 5 mg tablet 5 mg PO DAILY 08/11/25 08/19/25 History cetirizine 10 mg tablet 10 mg PO DAILY PRN allergy symptoms 08/11/25 08/11/25 History ezetimibe 10 mg tablet 10 mg PO DAILY 08/11/25 08/19/25 History famotidine 20 mg tablet 20 mg PO DAILY 08/11/25 08/19/25 History semaglutide 1 mg/dose (4 mg/3 mL) 1 mg subcut WEEKLY 08/11/25 08/19/25 History subcutaneous pen injector (Ozempic) Allergies Allergy/AdvReac Type Severity Reaction Status Date / Time hydrocodone Allergy Mild Itching Verified 08/19/25 06:48 Penicillins Allergy Mild RASH Verified 08/19/25 06:48 CHILD Vital Signs Vital Signs - 24 hr 08/19/25 06:51 Temperature 97.6 F Pulse Rate 81 Respiratory Rate 18 Blood Pressure 129/70 Pulse Oximetry 98 Oxygen Delivery Room Air Exam Const: General: cooperative and healthy appearing Resp: Effort & Inspection: normal respiratory effort and able to speak in complete sentences Auscultation: clear to auscultation bilaterally Cardio: Rate: regular rate Rhythm: regular rhythm GI: Inspection: normal to inspection GI Palp: No No hepatosplenomegaly present Auscultation: normal bowel sounds Rectal Exam: deferred Skin: General skin exam: normal color Psych: Appearance: grossly normal Mental Status: mental status grossly normal Assessment and Plan Assessment and plan (1) GERD (gastroesophageal reflux disease): Code(s): K21.9 - Gastro-esophageal reflux disease without esophagitis Status: Acute Assessment and Plan: The patient is deemed a good candidate for the procedures. Consent signed. Will proceed. (2) History of colonic polyps: Code(s): Z86.0100 - Personal history of colon polyps, unspecified Status: Acute
[2025-08-19] MEDS: BENZOCAINE (*SP) 60 ML SPRAY CAN (HURRICAINE) 1 SPRAY MUCOUS MEM (07:54)
--- NOTE | 2025-08-19 08:05 | SUR.OPER ---
EGD ended 799 and colonoscopy started 804
--- NOTE | 2025-08-19 08:06 | S_PTH ---
PATIENT: Bette Franks LOC: [facility]#:[id number] AGE/SX: 60/F ROOM: RE08/19/[address]: Lucas Mccurdy MD : 1965 BED: DIS: 08/19/2025 SPEC #: [id number] RECD: 08/19/25 09:28 STATUS: GAY REVinny #: [id number] GUI: 08/19/25 08:[address]: Lucas Mccurdy DEPT: [facility] [place] Surgical RECD BY: Zakia Meadows ENTERED: 08/19/25 09:28 SP TYPE: Surgical OTHR DR: Ciro PandyaMD Tissues: A - Gastric Biopsy B - Gastric Biopsy C - Colon Polypectomy D - Colon Polypectomy Procedures: Hematoxylin and Eosin Stain Gross and Microscopic Level 4
[2025-08-19 08:20] VITALS: BP 121/63; PULSE 81; RESP 20; O2SAT 100
[2025-08-19 08:30] VITALS: BP 113/76; PULSE 87; RESP 18; O2SAT 100
[2025-08-19 08:40] VITALS: BP 125/72; PULSE 79; RESP 19; O2SAT 100
== END 2025-08-19 09:00 | disposition home or self-care (01) ==
PROVIDERS: PCP Internal Medicine; Referring Provider Nurse Practitioner; Visit Provider Internal Medicine Gastroenterology
PROC: 0DJ08ZZ Inspection of Upper Intestinal Tract, Via Natural or Artificial Opening Endoscopic (ICD-10-PCS; CPT 45378; principal; 2025-08-19 08:00)
DX: Z12.11 Encounter for screening for malignant neoplasm of colon (principal); D12.5 Benign neoplasm of sigmoid colon; K63.5 Polyp of colon; K21.00 Gastro-esophageal reflux disease with esophagitis, without bleeding; K29.30 Chronic superficial gastritis without bleeding; K44.9 Diaphragmatic hernia without obstruction or gangrene; E78.5 Hyperlipidemia, unspecified; I10 Essential (primary) hypertension; I25.2 Old myocardial infarction; I73.9 Peripheral vascular disease, unspecified; F17.210 Nicotine dependence, cigarettes, uncomplicated; Z79.82 Long term (current) use of aspirin; Z79.02 Long term (current) use of antithrombotics/antiplatelets; Z79.85 Long-term (current) use of injectable non-insulin antidiabetic drugs; Z98.890 Other specified postprocedural states; Z98.891 History of uterine scar from previous surgery; Z95.5 Presence of coronary angioplasty implant and graft; Z80.8 Family history of malignant neoplasm of other organs or systems; Z82.49 Family history of ischemic heart disease and other diseases of the circulatory system
CPT/HCPCS: 43239; 45385; 82948; 88305; J2003; J2704; J7120